=== PATIENT | female | born 1935 | race Hispanic/Latino ===

== ENCOUNTER 2016-08-23 18:25 | Emergency (ER) | payer MEDICARE ==
[2016-08-23] MEDS ORDERED: NACL 0.9% 500 ML 500 ML IV ONE (20:01)
[2016-08-23 20:19] LABS: Basophils % (Auto) 0.4 % (0.0-1.8); Eosinophils % (Auto) 0.9 % (0.0-4.3); Hematocrit 41.2 % (30.3-42.9); Hemoglobin 13.5 gm/dl (10.1-14.3); Mean Corpuscular HGB Conc 33 % (30-34); Mean Corpuscular Hemoglobin 33 pg (28-32); Mean Corpuscular Volume 100 fl (79-97); Platelet Count 192 K/mm3 (140-440); Red Blood Count 4.12 M/mm3 (3.65-5.03); Red Cell Distribution Width 15.2 % (13.2-15.2); White Blood Count 10.2 K/mm3 (4.5-11.0)
[2016-08-23 20:37] LABS: Anion Gap 20 mmol/L; BUN/Creatinine Ratio 23.57; Blood Urea Nitrogen 33 mg/dL (7-17); Calcium 8.7 mg/dL (8.4-10.2); Carbon Dioxide 24 mmol/L (22-30); Chloride 96.2 mmol/L (98-107); Glucose 167 mg/dL (65-100); Potassium 3.9 mmol/L (3.6-5.0); Sodium 136 mmol/L (137-145)
[2016-08-23 21:34] LABS: Urine Drugs of Abuse Note Disclamer
--- NOTE | 2016-08-23 21:45 | Cat Scan Report ---
FINAL REPORT PROCEDURE: CT head without contrast. TECHNIQUE: Computerized tomography of the head was performed without contrast material. HISTORY: Headache. COMPARISON: No prior studies are available for comparison. FINDINGS: There is moderate cerebral atrophy. There is diminished attenuation within the deep white matter of both cerebral hemispheres. This likely represents chronic microvascular ischemic change. There are no mass lesions. There is no intracranial hemorrhage. The calvarium appears intact. There is opacification of a few of the left mastoid air cells. The paranasal sinuses are clear. IMPRESSION: Normal study of the brain for age. Mild left mastoiditis.
[2016-08-23 21:53] LABS: Bacteria,Urine 2+ /HPF (Negative); Bilirubin,Urine NEG (Negative); Blood,Urine NEG (Negative); Ketones,Urine NEG (Negative); Leukocyte Esterase,Urine TR (Negative); Mucus,Urine 1+ /HPF; Nitrite,Urine NEG (Negative); Urobilinogen,Urine < 2.0 mg/dL (<2.0)
--- NOTE | 2016-08-23 22:26 | Emergency Department Report ---
HPI - General Chief Complaint: Weakness Time Seen by Provider: 08/23/16 19:57 - HPI HPI: The patient is a 81-year-old female who presents for evaluation of altered mental status. The patient is accompanied by family members from provide history present illness. They state that at 5 PM she experienced a syncopal episode and became unresponsive. The patient states that since awakening this morning at approximately 6 AM, she experienced moderate in severity generalized weakness and lightheadedness, exacerbated with standing up or ambulation, improved with lying down and rests. They share that she has an established history of recurrent dehydration and orthostatic hypotension. She was found to have a low blood pressure on scene per EMS. The patient denies fever, head injury, headache, neck pain, neck stiffness, chest pain, dyspnea, abdominal pain , back pain, dysuria, vision or hearing changes, smell or taste changes, paresthesias, facial drooping, slurred speech, seizure-like activity, urine or bowel incontinence or retention, or other focal neurological deficit. ED Past Medical Hx - Past Medical History Hx Diabetes: Yes Hx Renal Disease: Yes Hx of Cancer: Yes (bone/breast) - Surgical History Hx Cholecystectomy: Yes Additional Surgical History: hysterectomy, R toe, cataract, thyroid - Social History Smoking Status: Never Smoker Substance Use Type: Prescribed ED Review of Systems ROS: Stated complaint: GENERAL WEAKNESS Other details as noted in HPI Constitutional: denies: fever reports lightheadedness and weakness ENT: denies: throat or neck pain Respiratory: denies: cough, shortness of breath Cardiovascular: denies: chest pain Endocrine: denies unexplained weight loss or gain Gastrointestinal: denies: abdominal pain, nausea Genitourinary: denies: dysuria Musculoskeletal: denies: leg swelling Skin: denies: rash Neurological: denies: headache Hematological/Lymphatic: denies: easy bleeding or easy bruising Psych: denies sadness or hopelessness Physical Exam - Physical Exam Vital Signs: Vital Signs 08/23/16 08/23/16 08/23/16 18:35 19:00 19:57 Temperature 97.5 F L Pulse Rate 74 81 87 Respiratory 20 18 11 L Rate Blood Pressure 118/58 Blood Pressure 130/84 [Left] O2 Sat by Pulse 97 Oximetry 08/23/16 08/23/16 08/23/16 20:00 20:05 20:10 Temperature Pulse Rate 87 84 Respiratory 16 18 13 Rate Blood Pressure Blood Pressure [Left] O2 Sat by Pulse 97 Oximetry 08/23/16 08/23/16 08/23/16 20:20 20:30 20:40 Temperature Pulse Rate 86 90 87 Respiratory 11 L 14 11 L Rate Blood Pressure 113/66 Blood Pressure [Left] O2 Sat by Pulse Oximetry 08/23/16 08/23/16 08/23/16 20:50 21:00 21:10 Temperature Pulse Rate 90 87 94 H Respiratory 11 L 12 14 Rate Blood Pressure 132/63 132/63 101/59 Blood Pressure [Left] O2 Sat by Pulse 91 Oximetry 08/23/16 08/23/16 08/23/16 21:36 21:40 21:50 Temperature Pulse Rate 80 81 81 Respiratory 16 13 Rate Blood Pressure 101/59 141/74 141/74 Blood Pressure [Left] O2 Sat by Pulse 95 Oximetry 08/23/16 22:00 Temperature Pulse Rate 76 Respiratory 14 Rate Blood Pressure 131/72 Blood Pressure [Left] O2 Sat by Pulse Oximetry Physical Exam: General: well-nourished, well-developed, no acute distress Head: Normocephalic, atraumatic Eyes: normal sclera, PERRL, EOM intact ENT: Mucous membranes are pale and dry Neck: No neck stiffness, no cervical adenopathy Respiratory: Breath sounds equal bilaterally, no wheezing, rales, or rhonchi Cardio: S1 and S2 present, no murmurs, rubs, gallops, capillary refill is delayed Abdomen: Normoactive bowel sounds, soft abdomen, no tenderness Chest WALL/Back: No tenderness to palpation of the chest wall, no CVA tenderness with percussion Musc: No pitting edema Skin: No rash Neuro: alert oriented x4, normal cognition, speech normal, no facial drooping, no uvula or tongue deviation on protrusion, no deficit with rotation of neck or shoulder shrug, CN 2-12 grossly intact, no obvious gross motor deficit in the upper or lower extremities with flexion or extension at the shoulder, elbow, wrist, hip, knee, or ankle bilaterally, no obvious gross sensation deficit to crude touch or 2 pt discrimination, 2+ symmetric reflexes on DTR testing, no coordination deficit with [id number] or [id number] testing, Babinski downgoing, romberg negative Psych: Normal affect ED Course Vital Signs 08/23/16 08/23/16 08/23/16 18:35 19:00 19:57 Temperature 97.5 F L Pulse Rate 74 81 87 Respiratory 20 18 11 L Rate Blood Pressure 118/58 Blood Pressure 130/84 [Left] O2 Sat by Pulse 97 Oximetry 08/23/16 08/23/16 08/23/16 20:00 20:05 20:10 Temperature Pulse Rate 87 84 Respiratory 16 18 13 Rate Blood Pressure Blood Pressure [Left] O2 Sat by Pulse 97 Oximetry 08/23/16 08/23/16 08/23/16 20:20 20:30 20:40 Temperature Pulse Rate 86 90 87 Respiratory 11 L 14 11 L Rate Blood Pressure 113/66 Blood Pressure [Left] O2 Sat by Pulse Oximetry 08/23/16 08/23/16 08/23/16 20:50 21:00 21:10 Temperature Pulse Rate 90 87 94 H Respiratory 11 L 12 14 Rate Blood Pressure 132/63 132/63 101/59 Blood Pressure [Left] O2 Sat by Pulse 91 Oximetry 08/23/16 08/23/16 08/23/16 21:36 21:40 21:50 Temperature Pulse Rate 80 81 81 Respiratory 16 13 Rate Blood Pressure 101/59 141/74 141/74 Blood Pressure [Left] O2 Sat by Pulse 95 Oximetry 08/23/16 22:00 Temperature Pulse Rate 76 Respiratory 14 Rate Blood Pressure 131/72 Blood Pressure [Left] O2 Sat by Pulse Oximetry ED Medical Decision Making - Lab Data Result diagrams: 08/23/16 20:01 08/23/16 20:01 - Medical Decision Making The patient was seen and examined by myself. The patient is placed on a labor relations analyst and continuous pulse ox. On initial evaluation, the patient was found to be in no distress. Evaluation orders were placed. The patient is given 1 L normal saline fluid bolus for treatment of her dehydration. Lab results are grossly not concerning. CT scan the head is negative for acute intracranial disease process, but is read as potentially positive for opacification of the left mastoid. On reexamination the patient is negative for any redness, tenderness, fluctuance, or crepitus to the left mastoid. Additionally the ear canals and tympanic membranes are unremarkable bilaterally. The patient is given a by mouth challenge which he tolerates well without any difficulty. The patient was reevaluated and reported that their symptoms were completely resolved. She states that she feels that her completely normal baseline and would like to go home. The patient is stable for discharge with outpatient follow-up. The patient is given follow-up and return instructions. The patient expressed understanding and agreed with the plan. The patient is discharged in stable condition. Critical care attestation.: If time is entered above; I have spent that time in minutes in the direct care of this critically ill patient, excluding procedure time. ED Disposition Clinical Impression: Orthostatic syncope, Dehydration, Hypovolemia Disposition: DISCHARGED TO HOME OR SELFCARE Is pt being admited?: No Does the pt Need Aspirin: No Condition: Stable Instructions: Dehydration (ED), Syncope (ED), Hypotension (ED) Referrals: PRIMARY CARE, [Primary Care Provider] - 3-5 Days Time of Disposition: 22:38
[2016-08-23 22:41] VITALS: BP 153/91
== END 2016-08-23 23:05 | disposition home or self-care (01) ==
LOC: ED 18:25
DX: R55 Syncope and collapse (principal); I95.1 Orthostatic hypotension; E86.1 Hypovolemia; E86.0 Dehydration; C50.919 Malignant neoplasm of unspecified site of unspecified female breast; C41.9 Malignant neoplasm of bone and articular cartilage, unspecified
CPT/HCPCS: 36415; 70450; 80048; 80307; 81001; 83880; 84484; 85025; 93005; 93010; 96360